=== PATIENT | male | born 1980 | race Caucasian/White ===

== ENCOUNTER 2022-06-25 11:30 | Emergency (ER) | payer OTHER | END 2022-06-25 15:06 | disposition home or self-care (01) | LOC: DL.ED 11:30 | DX: M25.461 Effusion, right knee (principal); E78.00 Pure hypercholesterolemia, unspecified; I10 Essential (primary) hypertension; E11.9 Type 2 diabetes mellitus without complications; F17.210 Nicotine dependence, cigarettes, uncomplicated; E66.9 Obesity, unspecified; Z79.84 Long term (current) use of oral hypoglycemic drugs; Z79.899 Other long term (current) drug therapy; Z68.41 Body mass index [BMI] 40.0-44.9, adult | CPT/HCPCS: 36415; 73562-RT; 84550; 85025; 86140; 99283 ==

== ENCOUNTER 2023-02-13 19:50 | Emergency (ER) | payer OTHER ==
[2023-02-13] MEDS ORDERED: Aspirin 81 MG Tab.Chew ONE (20:00)
[2023-02-13] MEDS ORDERED: Sodium Chloride 0.9% 10 ML Syringe FLUSH PRN (20:12)
[2023-02-13 20:35] LABS: ANION GAP 12.4 mEq/L (7-13); CHLORIDE,CL 103 mmol/L (98-107); SODIUM,NA 142 mmol/L (136-145)
[2023-02-13 20:40] LABS: ESTIMATED GFR 107 mL/min (>=60)
[2023-02-13] MEDS ORDERED: Aspirin 81 MG Tab.Chew PO ONE (20:46)
== END 2023-02-13 23:00 | disposition home or self-care (01) ==
LOC: DL.ED 19:50
DX: R07.89 Other chest pain (principal); E78.00 Pure hypercholesterolemia, unspecified; I10 Essential (primary) hypertension; E11.9 Type 2 diabetes mellitus without complications; F17.210 Nicotine dependence, cigarettes, uncomplicated; E66.9 Obesity, unspecified; Z68.30 Body mass index [BMI] 30.0-30.9, adult; Z79.84 Long term (current) use of oral hypoglycemic drugs; Z79.899 Other long term (current) drug therapy
CPT/HCPCS: 36415; 80053; 81003; 83735; 84484; 85025; 93005; 99285; A9270-GY; J3490